=== PATIENT | male | born 1950 | race Caucasian/White ===

== ENCOUNTER 2016-09-16 13:16 | Emergency (ER) | payer BC ==
[~2016-09-16] VITALS: Ht 180.3 cm; Wt 85.0 kg
[~2016-09-16 13:16] MED LIST: ASPI81 PO; ATOR20TA42 PO; HUMALOG SQ; LEVO.1 PO; LORTA5 PO; PRIN10TA PO; XALA0.00 EACH EYE
[2016-09-16 13:18] VITALS: BP 131/75; PULSE 67; RESP 16; TEMP 98.2; O2SAT 98
[2016-09-16] MEDS ORDERED: LIPI20TA PO (13:33)
[2016-09-16] MEDS ORDERED: TAMS5CAP PO (13:33)
[2016-09-16] MEDS ORDERED: LEVO.125 PO (13:33)
[2016-09-16] MEDS ORDERED: GABA300C5 PO (13:33)
[2016-09-16] MEDS ORDERED: ASPI1TAB69 PO (13:33)
[2016-09-16] MEDS ORDERED: HUMALOG SQ (13:33)
[2016-09-16] MEDS ORDERED: LATA0.002 EACH EYE (13:33)
--- NOTE | 2016-09-16 13:50 | PD ---
HPI Chief Complaint: Pain: Acute or Chronic Time Seen by Provider: 13:46 Travel History International Travel<30 days: No Contact w/Intl Traveler<30days: No Traveled to known affect area: No History of Present Illness HPI 66-year-old male with history of diabetes, presents to the ER today because he states that he woke up yesterday with shortness of breath. He states that he has not been able to get rid of it, but does not know any alleviating or exacerbating factors. He denies any chest pains, coughing, fevers, or any other symptoms. He denies any recent travel or calf pain. He states that he has had previous history of chronic back pain secondary to a previous muscle strain which is unchanged. Modifying Factors: None Associated Signs & Symptoms: Shortness of breath Risk Factors: None PFSH Past Medical History Hx Anticoagulant Therapy: Yes (BABY ASA DAILY) Cardiovascular Problems: Yes (HTN) High Cholesterol: Yes Diabetes: Yes Patient Takes Glucophage: No Diminished Hearing: No Thyroid Disease: Yes Past Surgical History Abdominal Surgery: Yes (RIGHT HERNIA REPAIR) Genitourinary Surgery: Yes (VASECTOMY) Social History Alcohol Use: No Tobacco Use: No Substance Use: No Allergies-Medications (Allergen,Severity, Reaction): Coded Allergies: No Known Allergies (Verified , 09/16/16) Reported Meds & Prescriptions Reported Meds & Active Scripts Active Reported Flomax (Tamsulosin HCl) 0.4 Mg Cap 0.4 Mg PO HS Latanoprost Opth Drops (Latanoprost) 0.005% Drops 1 Drop EACH EYE HS Refrigerate until opened. Aspirin 81 Mg Tabdr 81 Mg PO DAILY Lipitor (Atorvastatin Calcium) 20 Mg Tab 20 Mg PO HS Synthroid (Levothyroxine Sodium) 125 Mcg Tab 125 Mcg PO DAILY Humalog Inj (Insulin Human Lispro) 1,000 Unit/10 Ml Vial 1-9 Units SQ ACHS Max dose at bedtime:( )units; sugars< 70,(0)units; sugars 150-199,(1)unit; sugars 200-249,(3)units; sugars 250-299,(5)units; sugars 300-349,(7)units; sugars more than 349,(9)units. Gabapentin 300 Mg Cap 300 Mg PO TID Review of Systems Except as stated in HPI: all other systems reviewed are Neg Physical Exam Narrative GENERAL: Well-nourished, well-developed elderly white male patient in no acute distress. SKIN: Warm and dry. HEAD: Normocephalic. EYES: No scleral icterus. No injection or drainage. NECK: Supple, trachea midline. CARDIOVASCULAR: Regular rate and rhythm without murmurs, gallops, or rubs. RESPIRATORY: Breath sounds equal bilaterally. No accessory muscle use. GASTROINTESTINAL: Abdomen soft, non-tender, nondistended. MUSCULOSKELETAL: No cyanosis, or edema. BACK: Nontender without obvious deformity. No CVA tenderness. Data Data Last Documented VS Vital Signs Date Time Temp Pulse Resp B/P Pulse Ox O2 Delivery O2 Flow Rate FiO2 09/16/16 14:00 97 Room Air 09/16/16 13:18 98.2 67 16 131/75 Orders Complete Blood Count With Diff (09/16/16 13:46) Comprehensive Metabolic Panel (09/16/16 13:46) B-Type Natriuretic Peptide (09/16/16 13:46) D-Dimer (09/16/16 13:46) Act Partial Throm Time (Ptt) (09/16/16 13:46) Prothrombin Time / Inr (Pt) (09/16/16 13:46) Troponin I (09/16/16 13:46) Iv Access Insert/Monitor (09/16/16 13:46) Electrocardiogram (09/16/16 13:46) Ecg Monitoring (09/16/16 13:46) Oximetry (09/16/16 13:46) Oxygen Administration (09/16/16 13:46) Chest, Single Ap (09/16/16 13:46) Sodium Chloride 0.9% Flush (Ns Flush) (09/16/16 14:00) Creatine Kinase (Cpk) (09/16/16 13:46) Labs Laboratory Tests Test 09/16/16 13:55 White Blood Count 7.0 TH/MM3 Red Blood Count 4.78 MIL/MM3 Hemoglobin 14.0 GM/DL Hematocrit 41.4 % Mean Corpuscular Volume 86.7 FL Mean Corpuscular Hemoglobin 29.3 PG Mean Corpuscular Hemoglobin 33.8 % Concent Red Cell Distribution Width 12.8 % Platelet Count 170 TH/MM3 Mean Platelet Volume 8.0 FL Neutrophils (%) (Auto) 55.9 % Lymphocytes (%) (Auto) 33.9 % Monocytes (%) (Auto) 6.9 % Eosinophils (%) (Auto) 2.0 % Basophils (%) (Auto) 1.3 % Neutrophils # (Auto) 3.9 TH/MM3 Lymphocytes # (Auto) 2.4 TH/MM3 Monocytes # (Auto) 0.5 TH/MM3 Eosinophils # (Auto) 0.1 TH/MM3 Basophils # (Auto) 0.1 TH/MM3 CBC Comment DIFF FINAL Differential Comment Prothrombin Time 11.8 SEC Prothromb Time International 1.1 RATIO Ratio Activated Partial 27.8 SEC Thromboplast Time D-Dimer Quantitative (PE/DVT) 0.19 MG/L FEU Sodium Level 140 MEQ/L Potassium Level 4.9 MEQ/L Chloride Level 105 MEQ/L Carbon Dioxide Level 29.9 MEQ/L Anion Gap 5 MEQ/L Blood Urea Nitrogen 14 MG/DL Creatinine 1.00 MG/DL Estimat Glomerular Filtration 75 ML/MIN Rate Random Glucose 234 MG/DL Calcium Level 8.6 MG/DL Total Bilirubin 0.4 MG/DL Aspartate Amino Transf 25 U/L (AST/SGOT) Alanine Aminotransferase 48 U/L (ALT/SGPT) Alkaline Phosphatase 94 U/L Total Creatine Kinase 103 U/L Troponin I LESS THAN 0.02 NG/ML B-Type Natriuretic Peptide 64 PG/ML Total Protein 7.1 GM/DL Albumin 3.4 GM/DL MDM Medical Decision Making Medical Screen Exam Complete: Yes Emergency Medical Condition: Yes Medical Record Reviewed: Yes Interpretation(s) EKG shows sinus bradycardia rate of 54 bpm, no ST elevation or depression, and no arrhythmias. No significant T-wave inversions. Laboratory Tests Test 09/16/16 13:55 Prothrombin Time 11.8 SEC (9.8-11.6) Estimat Glomerular Filtration 75 ML/MIN (>89) Rate Random Glucose 234 MG/DL (74-106) Troponin I LESS THAN 0.02 NG/ML (0.02-0.05) Last 24 hours Impressions Chest X-Ray 09/16/16 0206 Signed Impressions: Service Date/Time: Friday, September 16, 2016 13:57 - CONCLUSION: Normal examination. Brenda Vieira MD Differential Diagnosis Shortness of breathCOPD versus bronchitis versus CHF versus pneumonia versus PE versus anxiety Narrative Course Chest x-ray did not show any signs of acute pulmonary processes. D-dimer is negative. EKG did not show any signs of dysrhythmias. Patient's vital signs are stable in the ER. At this point, I do not see any signs of acute processes and my plan would be to release the patient with follow-up to primary care physician. Return for any worsening in symptoms as necessary. The plan has been discussed with him and he states understanding. Diagnosis Primary Impression: SHORTNESS OF BREATH Disposition: 01 DISCHARGE HOME Condition: Stable Ray Clark MD Sep 16, 2016 13:49
[2016-09-16 14:00] VITALS: O2SAT 97
[2016-09-16] MEDS ORDERED: SODIUM CHLORIDE 0.9% FLUSH 5 ML FLUSH IVF PRN (14:00)
[2016-09-16 14:04] LABS: AUTOMATED NEUTROPHIL # 3.9 TH/MM3 (1.8-7.7); BASOPHIL # 0.1 TH/MM3 (0-0.2); BASOPHIL % 1.3 % (0.0-2.0); EOSINOPHIL # 0.1 TH/MM3 (0-0.4); HEMATOCRIT 41.4 % (39.0-51.0); HEMO FLAGS DIFF FINAL; LYMPH % 33.9 % (9.0-44.0); LYMPHOCYTE # 2.4 TH/MM3 (1.0-4.8); MEAN CELL VOLUME 86.7 FL (80.0-100.0); MEAN CORPUSCULAR HEMOGLOBIN 29.3 PG (27.0-34.0); MEAN CORPUSCULAR HGB CONC 33.8 % (32.0-36.0); MONO % 6.9 % (0.0-8.0); NEUT % 55.9 % (16.0-70.0); PLATELET COUNT 170 TH/MM3 (150-450); RED BLOOD COUNT 4.78 MIL/MM3 (4.50-5.90); RED CELL DISTRIBUTION WIDTH 12.8 % (11.6-17.2)
--- NOTE | 2016-09-16 14:06 | RADHPO ---
EXAM DATE/TIME: 09/16/2016 13:57 [facility] COMPARISON: SPINE THORACIC AP/LAT/SW (3VW), November 20, 2013, 15:31. INDICATIONS : Short of breath. MEDICAL HISTORY : None. SURGICAL HISTORY : None. ENCOUNTER: Initial ACUITY: 2 days PAIN SCORE: 0/10 LOCATION: Bilateral chest FINDINGS: A single view of the chest demonstrates the lungs to be symmetrically aerated without evidence of mas s, infiltrate or effusion. The cardiomediastinal contours are unremarkable. Osseous structures are intact. CONCLUSION: Normal examination. Brenda Vieira MD on September 16, 2016 at 14:04 Board Certified Radiologist. This report was verified electronically.
[2016-09-16 14:16] LABS: CHLORIDE 105 MEQ/L (98-107); POTASSIUM 4.9 MEQ/L (3.5-5.1); SODIUM (NA) 140 MEQ/L (136-145)
[2016-09-16 14:19] LABS: ANION GAP 5 MEQ/L (5-15); BICARBONATE 29.9 MEQ/L (21.0-32.0); BLOOD UREA NITROGEN 14 MG/DL (7-18)
[2016-09-16 14:22] LABS: ALT (GPT) 48 U/L (12-78); AST (GOT) 25 U/L (15-37); GLOMERULAR FILTRATION RATE 75 ML/MIN (>89)
[2016-09-16 14:24] LABS: TOTAL BILIRUBIN ADULT 0.4 MG/DL (0.2-1.0)
[2016-09-16 14:25] LABS: ALKALINE PHOSPHATASE 94 U/L (45-117); CREATINE KINASE 103 U/L (39-308)
[2016-09-16 14:33] LABS: APTT (PATIENT) 27.8 SEC (24.3-30.1); INTERNATIONAL NORMALIZED RATIO 1.1 RATIO; PROTHROMBIN TIME - PATIENT 11.8 SEC (9.8-11.6)
[2016-09-16 14:53] VITALS: BP 110/65; PULSE 56; RESP 17; O2SAT 98
--- NOTE | 2016-09-17 14:11 | EKG ---
Date Performed: 09/16/2016 Time Performed: 14:05:24 PTAGE: 66 years EKG: Sinus bradycardia with sinus arrhythmia Normal ECG except for rate NO PREVIOUS TRACING DOCTOR: Stevo Gerber Interpretating Date/Time 09/17/2016 14:09:58
== END 2016-09-16 15:04 | disposition home or self-care (01) ==
LOC: PHED 13:16
DX: R06.02 Shortness of breath (principal); R00.1 Bradycardia, unspecified; Z79.01 Long term (current) use of anticoagulants; I10 Essential (primary) hypertension; E78.00 Pure hypercholesterolemia, unspecified; E11.9 Type 2 diabetes mellitus without complications; E07.9 Disorder of thyroid, unspecified
CPT/HCPCS: 71010; 80053; 82550; 83880; 84484; 85025; 85379; 85610; 85730; 93005

== ENCOUNTER 2017-07-18 15:05 | Emergency (ER) | payer MEDICARE, BC ==
[~2017-07-18 15:05] MED LIST changes: +ASPI1TAB69 PO; -ASPI81 PO; -ATOR20TA42 PO; +GABA300C5 PO; +LATA0.002 EACH EYE; -LEVO.1 PO; +LEVO.125 PO; +LIPI20TA PO; -LORTA5 PO; -PRIN10TA PO; +TAMS5CAP PO; -XALA0.00 EACH EYE
[2017-07-18 15:07] VITALS: BP 141/77; PULSE 76; RESP 16; TEMP 97.8; O2SAT 97
--- NOTE | 2017-07-18 15:59 | RADRPT ---
EXAM DATE/TIME: 07/18/2017 15:43 [facility] COMPARISON: No previous studies available for comparison. INDICATIONS : Short of breath, cough, difficulty taking a deep breath, believes symptoms are caused by mold, denies chest pain MEDICAL HISTORY : None. SURGICAL HISTORY : None. ENCOUNTER: Initial ACUITY: 2 months PAIN SCORE: 0/10 LOCATION: Bilateral chest FINDINGS: PA and lateral views of the chest demonstrate the lungs to be symmetrically aerated without evidence of mass, infiltrate or effusion. Linear atelectasis/scarring in the lingula. The cardiomediastinal co ntours are unremarkable. Osseous structures are intact. CONCLUSION: Linear atelectasis/scarring in the lingula. No acute infiltrate. Ishmael Villarreal MD on July 18, 2017 at 15:54 Board Certified Radiologist. This report was verified electronically.
[2017-07-18 16:34] LABS: AUTOMATED NEUTROPHIL # 5.9 TH/MM3 (1.8-7.7); BASOPHIL % 0.5 % (0.0-2.0); EOSINOPHIL # 0.2 TH/MM3 (0-0.4); EOSINOPHIL % 2.5 % (0.0-4.0); HEMO FLAGS DIFF FINAL; LYMPH % 27.5 % (9.0-44.0); LYMPHOCYTE # 2.6 TH/MM3 (1.0-4.8); MEAN CELL VOLUME 89.8 FL (80.0-100.0); MEAN CORPUSCULAR HEMOGLOBIN 29.9 PG (27.0-34.0); MEAN CORPUSCULAR HGB CONC 33.4 % (32.0-36.0); MONO % 6.6 % (0.0-8.0); NEUT % 62.9 % (16.0-70.0); PLATELET COUNT 192 TH/MM3 (150-450); RED BLOOD COUNT 5.02 MIL/MM3 (4.50-5.90); RED CELL DISTRIBUTION WIDTH 13.5 % (11.6-17.2); WHITE BLOOD COUNT 9.3 TH/MM3 (4.0-11.0)
[2017-07-18 16:40] LABS: ANION GAP 5 MEQ/L (5-15); BICARBONATE 30.3 MEQ/L (21.0-32.0); BLOOD UREA NITROGEN 26 MG/DL (7-18); CHLORIDE 102 MEQ/L (98-107); GLOMERULAR FILTRATION RATE 51 ML/MIN (>89); MAGNESIUM 2.3 MG/DL (1.5-2.5); POTASSIUM 4.9 MEQ/L (3.5-5.1); SODIUM (NA) 137 MEQ/L (136-145)
[2017-07-18 16:41] LABS: INTERNATIONAL NORMALIZED RATIO 1.1 RATIO; PROTHROMBIN TIME - PATIENT 11.7 SEC (9.8-11.6)
[2017-07-18 16:48] LABS: CREATINE KINASE 61 U/L (39-308)
--- NOTE | 2017-07-18 18:06 | PD ---
HPI Chief Complaint: Respiratory Symptoms Time Seen by Provider: 17:51 Travel History International Travel<30 days: No Contact w/Intl Traveler<30days: No Traveled to known affect area: No History of Present Illness HPI 67-year-old male presents to the emergency department complaint of shortness of breath 2 weeks. He associates it with mold growing in his home. Says he feels like he just can't catch his breath. He has seen his primary care provider and was given Minerva with no relief of symptoms. Denies chest pain. Denies fever, vomiting. Reports feeling lightheaded and a dry cough. Denies wheezing. Denies history of COPD or asthma. Denies hemoptysis. Denies history of DVT or PE. Reports surgical cystoscopy on June 19. Denies anticoagulant therapy. Denies leg edema. Shortness of breath is worse at home. Less shortness of breath when he outside of the home. Denies recent illness. History of diabetes mellitus and has an insulin pump. His last blood sugar was 163. History of hypertension and takes lisinopril. Primary care provider is Dr. Stewart. No known allergies. Denies tobacco use. Has no other medical complaints. No other modifying factors or associated signs and symptoms. PFSH Past Medical History Hx Anticoagulant Therapy: Yes (BABY ASA DAILY) Cardiovascular Problems: Yes (HTN) High Cholesterol: Yes Diabetes: Yes Diminished Hearing: No Thyroid Disease: Yes Past Surgical History Abdominal Surgery: Yes (RIGHT HERNIA REPAIR) Genitourinary Surgery: Yes (VASECTOMY) Social History Alcohol Use: No Tobacco Use: No Substance Use: No Allergies-Medications (Allergen,Severity, Reaction): Coded Allergies: No Known Allergies (Verified Adverse Reaction, Unknown, 07/18/17) Reported Meds & Prescriptions Reported Meds & Active Scripts Active Reported Flomax (Tamsulosin HCl) 0.4 Mg Cap 0.4 Mg PO HS Latanoprost Opth Drops (Latanoprost) 0.005% Drops 1 Drop EACH EYE HS Refrigerate until opened. Lipitor (Atorvastatin Calcium) 20 Mg Tab 20 Mg PO HS Synthroid (Levothyroxine Sodium) 125 Mcg Tab 125 Mcg PO DAILY Humalog Inj (Insulin Human Lispro) 1,000 Unit/10 Ml Vial 1-9 Units SQ ACHS Max dose at bedtime:( )units; sugars< 70,(0)units; sugars 150-199,(1)unit; sugars 200-249,(3)units; sugars 250-299,(5)units; sugars 300-349,(7)units; sugars more than 349,(9)units. Gabapentin 300 Mg Cap 300 Mg PO TID Review of Systems Except as stated in HPI: all other systems reviewed are Neg Physical Exam Narrative GENERAL: Well-nourished, well-developed male patient, in no acute distress SKIN: Warm and dry. HEAD: Atraumatic. Normocephalic. EYES: Pupils equal and round. No scleral icterus. No injection or drainage. ENT: Mucosa pink and moist. Airway patent. NECK: Trachea midline. CARDIOVASCULAR: Regular rate and rhythm. No murmur appreciated. RESPIRATORY: No accessory muscle use. Clear to auscultation. Breath sounds equal bilaterally. GASTROINTESTINAL: Abdomen soft, non-tender, nondistended. Hepatic and splenic margins not palpable. Bowel sounds are active 4 quadrants. MUSCULOSKELETAL: No obvious deformities. No clubbing. No cyanosis. No edema. NEUROLOGICAL: Awake and alert. Oriented 3. No obvious cranial nerve deficits. Motor grossly within normal limits. Normal speech. PSYCHIATRIC: Appropriate mood and affect; insight and judgment normal. Data Data Last Documented VS Vital Signs Date Time Temp Pulse Resp B/P (MAP) Pulse Ox O2 Delivery O2 Flow Rate FiO2 07/18/17 18:45 67 18 146/67 (93) 97 Room Air 07/18/17 15:07 97.8 Orders Orders Electrocardiogram (07/18/17 15:36) Basic Metabolic Panel (Bmp) (07/18/17 15:36) B-Type Natriuretic Peptide (07/18/17 15:36) Ckmb (Isoenzyme) Profile (07/18/17 15:36) Complete Blood Count With Diff (07/18/17 15:36) Magnesium (Mg) (07/18/17 15:36) Prothrombin Time / Inr (Pt) (07/18/17 15:36) Act Partial Throm Time (Ptt) (07/18/17 15:36) Troponin I (07/18/17 15:36) Chest, Pa & Lat (07/18/17 15:36) Ct Pulmonary Angiogram (07/18/17 ) Iohexol 350 Inj (Omnipaque 350 Inj) (07/18/17 19:47) Labs Laboratory Tests Test 07/18/17 15:55 White Blood Count 9.3 TH/MM3 Red Blood Count 5.02 MIL/MM3 Hemoglobin 15.0 GM/DL Hematocrit 45.0 % Mean Corpuscular Volume 89.8 FL Mean Corpuscular Hemoglobin 29.9 PG Mean Corpuscular Hemoglobin Concent 33.4 % Red Cell Distribution Width 13.5 % Platelet Count 192 TH/MM3 Mean Platelet Volume 7.9 FL Neutrophils (%) (Auto) 62.9 % Lymphocytes (%) (Auto) 27.5 % Monocytes (%) (Auto) 6.6 % Eosinophils (%) (Auto) 2.5 % Basophils (%) (Auto) 0.5 % Neutrophils # (Auto) 5.9 TH/MM3 Lymphocytes # (Auto) 2.6 TH/MM3 Monocytes # (Auto) 0.6 TH/MM3 Eosinophils # (Auto) 0.2 TH/MM3 Basophils # (Auto) 0.0 TH/MM3 CBC Comment DIFF FINAL Differential Comment Prothrombin Time 11.7 SEC Prothromb Time International Ratio 1.1 RATIO Activated Partial Thromboplast Time 27.0 SEC Blood Urea Nitrogen 26 MG/DL Creatinine 1.40 MG/DL Random Glucose 228 MG/DL Calcium Level 9.1 MG/DL Magnesium Level 2.3 MG/DL Sodium Level 137 MEQ/L Potassium Level 4.9 MEQ/L Chloride Level 102 MEQ/L Carbon Dioxide Level 30.3 MEQ/L Anion Gap 5 MEQ/L Estimat Glomerular Filtration Rate 51 ML/MIN Total Creatine Kinase 61 U/L Troponin I LESS THAN 0.02 NG/ML B-Type Natriuretic Peptide 37 PG/ML MDM Medical Decision Making Medical Screen Exam Complete: Yes Emergency Medical Condition: Yes Medical Record Reviewed: Yes Differential Diagnosis Shortness of breath, bronchitis, pneumonia, PE Narrative Course 67-year-old male with shortness of breath 2 weeks. Associates to mold growing in his home. Lungs are clear and equal throughout. Patient is in no acute distress. 97% oxygen saturation on room air. No retractions or tachypnea. CBC , BMP, troponin, BNP, chest x-ray ordered in triage. 1803: CBC, coags unremarkable. BUN 26. Creatinine 1.40. Random glucose 228. Troponin less than 0.02. BNP 37. 1804: Dr. Rizvi evaluated the patient and recommended CT pulmonary angiogram. Order entered. 2100: CT pulmonary angiogram pending. Dr. Rizvi assumed patient care at this time. See his note for final patient disposition. Celia Mccann Jul 18, 2017 18:06
[2017-07-18 18:45] VITALS: BP 146/67; PULSE 67; RESP 18; O2SAT 97
[2017-07-18] MEDS ORDERED: IOHEXOL 350 MG/ML 10 ML VIAL (for RAD DIAG) IVCONTRAST ONE (19:47)
--- NOTE | 2017-07-18 21:09 | RADRPT ---
EXAM DATE/TIME: 07/18/2017 19:29 [facility] COMPARISON: No previous studies available for comparison. INDICATIONS : Shortness of breath. IV CONTRAST: 70 cc Omnipaque 350 (iohexol) IV RADIATION DOSE: 23.12 CTDIvol (mGy) MEDICAL HISTORY : Cardiovascular disease. Hypertension. Diabetes. SURGICAL HISTORY : None. ENCOUNTER: Initial ACUITY: 2 days PAIN SCALE: 0/10 LOCATION: chest TECHNIQUE: Volumetric scanning of the chest was performed using a pulmonary embolism protocol MIP images were re constructed. Using automated exposure control and adjustment of the mA and/or kV according to patien t size, radiation dose was kept as low as reasonably achievable to obtain optimal diagnostic quality images. DICOM format image data is available electronically for review and comparison. Follow-up recommendations for detected pulmonary nodules are based at a minimum on nodule size and pa tient risk factors according to Fleischner Society Guidelines. FINDINGS: PULMONARY ARTERIES: No filling defects are seen in the pulmonary arteries through the segmental level. LUNGS: There is no consolidation or pneumothorax . No concerning pulmonary nodule is visualized. PLEURAE: There is no pleural thickening or pleural effusion. MEDIASTINUM: There is good visualization of the great vessels of the middle mediastinum. No evidence of mediastin al or hilar adenopathy/mass. MUSCULOSKELETAL: Within normal limits for patient age. MISCELLANEOUS: The visualized upper abdominal organs demonstrate no acute abnormality. CONCLUSION: No pulmonary embolus. Hudson De Santiago MD on July 18, 2017 at 21:06 Board Certified Radiologist. This report was verified electronically.
--- NOTE | 2017-07-18 21:15 | PD ---
Physical Exam Narrative Patient was seen by my geriatric nurse assistant and signed out to me. Data Data Last Documented VS Vital Signs Date Time Temp Pulse Resp B/P (MAP) Pulse Ox O2 Delivery O2 Flow Rate FiO2 07/18/17 18:45 67 18 146/67 (93) 97 Room Air 07/18/17 15:07 97.8 Orders Orders Electrocardiogram (07/18/17 15:36) Basic Metabolic Panel (Bmp) (07/18/17 15:36) B-Type Natriuretic Peptide (07/18/17 15:36) Ckmb (Isoenzyme) Profile (07/18/17 15:36) Complete Blood Count With Diff (07/18/17 15:36) Magnesium (Mg) (07/18/17 15:36) Prothrombin Time / Inr (Pt) (07/18/17 15:36) Act Partial Throm Time (Ptt) (07/18/17 15:36) Troponin I (07/18/17 15:36) Chest, Pa & Lat (07/18/17 15:36) Ct Pulmonary Angiogram (07/18/17 ) Iohexol 350 Inj (Omnipaque 350 Inj) (07/18/17 19:47) Ed Discharge Order (07/18/17 21:18) Labs Laboratory Tests Test 07/18/17 15:55 White Blood Count 9.3 TH/MM3 Red Blood Count 5.02 MIL/MM3 Hemoglobin 15.0 GM/DL Hematocrit 45.0 % Mean Corpuscular Volume 89.8 FL Mean Corpuscular Hemoglobin 29.9 PG Mean Corpuscular Hemoglobin Concent 33.4 % Red Cell Distribution Width 13.5 % Platelet Count 192 TH/MM3 Mean Platelet Volume 7.9 FL Neutrophils (%) (Auto) 62.9 % Lymphocytes (%) (Auto) 27.5 % Monocytes (%) (Auto) 6.6 % Eosinophils (%) (Auto) 2.5 % Basophils (%) (Auto) 0.5 % Neutrophils # (Auto) 5.9 TH/MM3 Lymphocytes # (Auto) 2.6 TH/MM3 Monocytes # (Auto) 0.6 TH/MM3 Eosinophils # (Auto) 0.2 TH/MM3 Basophils # (Auto) 0.0 TH/MM3 CBC Comment DIFF FINAL Differential Comment Prothrombin Time 11.7 SEC Prothromb Time International Ratio 1.1 RATIO Activated Partial Thromboplast Time 27.0 SEC Blood Urea Nitrogen 26 MG/DL Creatinine 1.40 MG/DL Random Glucose 228 MG/DL Calcium Level 9.1 MG/DL Magnesium Level 2.3 MG/DL Sodium Level 137 MEQ/L Potassium Level 4.9 MEQ/L Chloride Level 102 MEQ/L Carbon Dioxide Level 30.3 MEQ/L Anion Gap 5 MEQ/L Estimat Glomerular Filtration Rate 51 ML/MIN Total Creatine Kinase 61 U/L Troponin I LESS THAN 0.02 NG/ML B-Type Natriuretic Peptide 37 PG/ML [facility] Supervised Visit with NOEL: Yes Interpretation(s) Last Impressions Chest X-Ray 07/18/17 1536 Signed Impressions: Service Date/Time: Tuesday, July 18, 2017 15:43 - CONCLUSION: Linear atelectasis/scarring in the lingula. No acute infiltrate. Ishmael Villarreal MD Diagnosis Primary Impression: Dyspnea Qualified Codes: R06.00 - Dyspnea, unspecified Patient Instructions: General Instructions Additional Instruction: Advised patient to follow-up with personal physician and boiler mechanic. Return if worse. Med/Other Pt SpecificInfo: No Change to Meds Disposition: 01 DISCHARGE HOME Condition: Stable Milton Rizvi MD Jul 18, 2017 21:15
--- NOTE | 2017-07-18 21:32 | EKG ---
Date Performed: 07/18/2017 Time Performed: 16:01:58 PTAGE: 67 years EKG: Sinus rhythm NORMAL ECG Compared to prior tracing no significant change DOCTOR: Desiree Rahman Interpretating Date/Time 07/18/2017 21:30:46
== END 2017-07-18 21:25 | disposition home or self-care (01) ==
LOC: NEPD 15:05
DX: R06.02 Shortness of breath (principal); I10 Essential (primary) hypertension; E78.00 Pure hypercholesterolemia, unspecified; E11.9 Type 2 diabetes mellitus without complications; Z96.41 Presence of insulin pump (external) (internal); Z79.82 Long term (current) use of aspirin
CPT/HCPCS: 71020; 71275; 80048; 82550; 83735; 83880; 84484; 85025; 85610; 85730; 93005; 99285; Q9967

== ENCOUNTER → 2017-08-03 | Outpatient (CLI) | payer MEDICARE, BC ==
[~2017-08-03] MED LIST changes: -ASPI1TAB69 PO
--- NOTE | 2017-08-04 08:31 | RSPPFT ---
DATE OF PROCEDURE: 08/03/17 COMMENTS: VOLUMES DYNAMIC: FVC and FEV1 normal. STATIC: FRC, RV and TLC normal. FLOWS: FEV1% and FEF 25-75 normal. DIFFUSION: Normal. FLOW VOLUME LOOP: Normal configuration. IMPRESSION: Normal pulmonary functions with no significant obstruction or restriction and normal diffusion. No significant improvement post-bronchodilator noted.
== END ==
LOC: HRSP 10:07
PROVIDERS: ATTEND Internal Medicine
DX: R06.02 Shortness of breath (principal)
CPT/HCPCS: 94060; 94620; 94726; 94729; 95012